=== PATIENT | male | born 1935 | race Caucasian/White ===

== ENCOUNTER 2017-01-23 11:31 | Emergency (ER) | payer MEDICARE ==
[2017-01-23] MEDS ORDERED: Lidocaine 1% 20 ML MDV ONE (13:09)
[2017-01-23] MEDS ORDERED: traMADol HCl 50 MG TAB ONE (13:31)
[2017-01-23] MEDS ORDERED: Triple Antibiotic Oint 1 GM Packet ONE (13:47)
--- NOTE | 2017-01-23 15:19 | CT ---
CT HEAD NONCONTRAST: HISTORY: Fall. Head injury. FINDINGS: There is no evidence of acute intracranial hemorrhage or infarct. 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 There is no mass effect or shift of midline structu res. IMPRESSION: No acute intracranial abnormalities are demonstrated. POS: [facility]
--- NOTE | 2017-01-23 15:23 | RAD ---
LEFT RIBS THREE VIEWS: CHEST ONE VIEW: HISTORY: Fall. Left chest wall injury. FINDINGS: Nondisplaced fractures involve the lateral aspect of left ribs 5, 6, and 7. There is no evidence of pneumothorax. The cardiac silhouette and pulmonary vasculature are unremarkable. There is no loba r consolidation or evidence of pneumothorax. IMPRESSION: Nondisplaced left mid rib fractures. POS: [facility]
== END 2017-01-23 14:00 | disposition home or self-care (01) ==
LOC: NAV ERS 11:31
DX: S22.42XA Multiple fractures of ribs, left side, initial encounter for closed fracture (principal); S01.81XA Laceration without foreign body of other part of head, initial encounter; S80.01XA Contusion of right knee, initial encounter; S50.812A Abrasion of left forearm, initial encounter; S60.812A Abrasion of left wrist, initial encounter; K51.90 Ulcerative colitis, unspecified, without complications; Z79.899 Other long term (current) drug therapy; W01.0XXA Fall on same level from slipping, tripping and stumbling without subsequent striking against object, initial encounter
CPT/HCPCS: 12011; 70450; J2001

== ENCOUNTER 2018-10-30 20:45 | Emergency (ER) | payer MEDICARE | END 2018-10-30 21:12 | disposition home or self-care (01) | LOC: NAV ERS 20:45 | DX: S51.811A Laceration without foreign body of right forearm, initial encounter (principal); I10 Essential (primary) hypertension; Z79.899 Other long term (current) drug therapy; W22.8XXA Striking against or struck by other objects, initial encounter | CPT/HCPCS: 99283 ==